=== PATIENT | female | born 1950 | race Caucasian/White ===

== ENCOUNTER → 2024-07-06 | Outpatient (CLI) | payer MEDICARE ==
--- NOTE | 2024-07-06 23:08 | CT ---
EXAMINATION TYPE: CT left knee - [facility] Protocol DATE OF EXAM: 07/06/2024 COMPARISON: None HISTORY: 74-year-old female M25.562 pre-op left total knee TECHNIQUE: CT scanning of the pelvis/hips, left knee, and both ankles without IV contrast. Coronal an d sagittal reconstructions performed. CT DLP: 550 mGycm Automated exposure control for dose reduction was used. FINDINGS: Pelvis and hips: Pelvic for relaxation. Small pelvic phleboliths. Uterus anteverted. There are no abnormal fluid colle ction the pelvis or pelvic relaxation. Moderate degenerative change of the left hip and mild of the right hip. No hip joint effusion. Left knee: There is a small to moderate knee joint effusion. No Burton's cyst. There is tricompartmental osteoart hrosis, severe bone on bone in the patellofemoral compartment and at least moderate within the medial compartment. No acute fracture, subluxation, or dislocation seen. Extensor mechanism is intact. Ankles: Possible intraosseous ganglion cyst or intraosseous lipoma within the anterior left calcaneus measuri ng 1.3 cm. Mild degenerative change along the left midfoot. No acute fracture, subluxation, or disloc ation seen. IMPRESSION: 1. LEFT KNEE WITH TRICOMPARTMENTAL OSTEOARTHROSIS, SEVERE BONE ON BONE IN THE PATELLOFEMORAL COMPARTM ENT AND AT LEAST MODERATE WITHIN THE MEDIAL COMPARTMENT. REACTIVE KNEE JOINT EFFUSION. IMAGING FOR GOLDBERG RGICAL PLANNING PURPOSES. 2. PELVIS AND HIPS: MODERATE LEFT HIP OA AND MILD RIGHT HIP OA. PELVIC FLOOR RELAXATION. 3. ANKLES: Either a 1.3 cm intraosseous ganglion cyst or intraosseous lipoma within the anterior left calcaneus.
== END | disposition home or self-care (01) ==
LOC: RADCTMAIN 12:53
PROVIDERS: ATTEND Orthopaedic Surgery
DX: M25.562 Pain in left knee